=== PATIENT | male | born 1990 | race Caucasian/White ===

== ENCOUNTER 2024-12-09 18:15 | Emergency (ER) | payer SELFPAY ==
--- NOTE | ~2024-12-09 | CT_ITS ---
CLINICAL HISTORY: seizure , headache. CT head without contrast Comparison: None Findings: No intra-axial mass, midline shift, hydrocephalus, or acute hemorrhage. No significant atrophy-like change or white matter disease. There is no sinus or mastoid fluid. The orbits are unremarkable. There is no acute fracture. IMPRESSION: 1. No acute intracranial findings. This document has been electronically signed by: Zhang Cerna MD on 12/09/2024 19:38:14
--- NOTE | 2024-12-09 18:18 | ED_ITS ---
HPI - General Adult General Chief complaint: Seizure Stated complaint: seizure last night/blood nose today Time Seen by Provider: 12/09/24 18:37 Source: patient Mode of arrival: ambulatory Limitations: no limitations History of Present Illness ED Provider: DR. Wiggins HPI narrative: 34-year-old male with known history of epilepsy normally on Keppra for seizure patient ran out of Keppra medication for the past 2 weeks due to health insurance issue, patient is complaining of headache since yesterday, woke up this morning with generalized body ache and patel indicating biting his tongue, Patient also has been smelling silver all day yesterday which is specific aura for patient's seizure. Complaining of head and neck pain. No fever, no chills. Related Data Previous Rx's ?Medication ?Instructions ?Recorded levetiracetam 500 mg tablet 500 mg PO BID #90 tabs 12/09/24 (Keppra) Allergies Allergy/AdvReac Type Severity Reaction Status Date / Time amoxicillin Allergy Vomiting Verified 12/09/24 18:22 latex Allergy Swelling Verified 12/09/24 18:22 Penicillins Allergy Vomiting Verified 12/09/24 18:22 Review of Systems 2 Review of Systems: All other systems are reviewed and are negative Constitutional: Reports as per HPI and Reports no additional constitutional complaints Eyes: Reports as per HPI and Reports no additional eye complaints Reports system reviewed and no additional complaints, except as documented Cardiovascular: Reports as per HPI and Reports no additional cardiovascular complaints Respiratory: Reports as per HPI and Reports no additional respiratory complaints Gastrointestinal: Reports as per HPI and Reports no additional gastrointestinal complaints Genitourinary: Reports no additional female genitourinary complaints Musculoskeletal: Reports no additional musculoskeletal complaints Skin/Breast: Reports system reviewed and no additional complaints, except as docu Psychiatric: Reports no additional psychiatric complaints Endocrine: Reports no additional endocrine complaints Hematologic/Lymphatic: Reports no additional hematologic/lymphatic complaints Allergic/Immunologic: Reports no additional allergic/immunologic complaints Reports system reviewed and no additional complaints, except as documented and Reports Abnormal speech present [facility] Social History Social History Advance Directives: No Advance Directives Information Provided: No Physical Exam ED Vital Signs: Vital Signs - 24 hr 12/09/24 18:19 Temperature 98.3 F Pulse Rate 82 Respiratory Rate 18 Blood Pressure 135/94 H Pulse Oximetry 99 Oxygen Delivery Method Room Air BMI result Body Mass Index 21.4 Vital signs have been reviewed and appear to be correct. Blood pressure elevated. Heart rate normal. Respiratory rate normal. Temperature normal. Oxygen saturation normal. Appearance: Alert. Oriented X3. No acute distress. Head: Normal external exam. Normocephalic. Atraumatic. No Macias signs noted. No raccoon eyes noted Eyes: PERRLA. EOMI. Conjunctiva and sclera normal. Eyelids normal. ENT: TM's Normal. Pharynx normal. Uvula midline. Moist mucous membranes. No trismus noted. No drooling noted. No muffled voice noted. Neck: Normal inspection. Neck supple. FROM. No adenopathy. Thyroid Normal. No meningeal signs. No neck mass noted. CVS: Normal heart rate and rhythm. Heart sound normal. No murmurs noted. Pulses normal throughout. Respiratory: No respiratory distress. Painless inspiration. Breath sounds normal. No wheezes/rales/rhonchi noted. Chest nontender. No accessory muscle usage noted or decreased air movement noted. Abdomen: Soft and nontender. Bowel sounds normal in all 4 quadrants. No distention noted. No organomegaly noted. No visible injury noted. Back: No CVA tenderness. Full range of motion noted. Skin: Skin warm and dry. Normal skin color. Normal skin turgor. No rashes/lesions/lacerations noted. Extremities: No lower extremity edema. Extremities exhibit normal range of motion. Extremities nontender. Neuro: Mental status: Normal attention, orientation, memory, and affect. Cranial nerves: Pupils are equal, round and reactive to light, EOMI, visual garcia are fall, face is symmetric, facial sensations are normal. Motor examination normal muscle tone, strength to 4 extremities. DTR are +2, planter's are flexor. Sensory exam; normal coordination, no ataxia, gait stable. Cerebellar exam: [id number] and [id number]-[id number] is normal. Extrapyramidal system: No tremors, no rigidity with normal facial expressions. Pronator drift not present Course Course Course Narrative: This is a rapid medical exam performed by Myles Galeano NP: Additional HPI, ROS, PE not included below will be deferred to primary provider. Patient is a 34-year-old male with history of epilepsy presenting with complaint of severe headache yesterday, presumed seizure. Does not remember having a seizure but woke this morning with bite patel on his tongue, ongoing headache. Today while at work had a nosebleed. Has been out of his Keppra for around 2 weeks, takes 500mg BID. States he is waiting for his insurance from work to kick in in December. Plan: labs Reevaluation(s) Reevaluation #1: Seizure, not compliant with Keppra due to insurance issue, will prescribe a month supply of Keppra until patient get back his health insurance. Time: 20:30 Medications Administered Discontinued Medications Generic Name Dose Route Start Last Admin Trade Name Freq PRN Reason Stop Dose Admin Acetaminophen 975 mg 12/09/24 18:52 12/09/24 19:08 Acetaminophen 325 Mg Tablet PO 12/09/24 18:53 975 mg ONCE ONE Administration Levetiracetam 1,000 mg 12/09/24 18:46 12/09/24 18:50 Levetiracetam 1,000 Mg Tablet PO 12/09/24 18:47 1,000 mg ONCE ONE Administration Medical Decision Making Differential Diagnosis Differential Diagnoses: The differential diagnosis associated with the presentation includes ( intracranial pathology, subtherapeutic Keppra, electrolyte derangement, severe anemia) Admission/Observation Consideration of admission/observation: Escalation of care including admission/observation considered Lab Data MDM Lab Attestation statement: I reviewed the patient's lab results. 12/09/24 18:31 12/09/24 18:31 Labs: Lab Results 12/09/24 Range/Units 18:31 WBC 8.5 (4.8-10.8) X10*3/uL RBC 4.92 (4.60-5.80) X10*6/uL Hgb 14.7 (14.0-18.0) g/dl Hct 43.3 (42.0-52.0) % MCV 88.0 (80.0-98.0) fL MCH 29.9 (27.0-33.0) pg MCHC 33.9 (31.0-36.0) g/dl RDW 13.2 (11.0-16.0) % Plt Count 282 (160-400) X10*3/uL MPV 9.3 L (9.4-12.4) fL Immature Gran % (Auto) 0.2 (0.0-0.4) % Neut % (Auto) 60.8 (45-73) % Lymph % (Auto) 28.0 (20-40) % [place] % (Auto) 9.1 (2-11) % Eos % (Auto) 0.7 (0-4) % Baso % (Auto) 1.2 (0-2) % Lymph # (Auto) 2.4 (1.2-4.9) X10*3/uL [place] # (Auto) 0.8 (0.1-1.2) X10*3/uL Eos # (Auto) 0.1 (0.0-0.4) X10*3/uL Baso # (Auto) 0.1 (0.0-0.2) X10*3/uL Abs Immat Gran (auto) 0.02 (0.00-0.03) X10*3/uL Absolute Neuts (auto) 5.2 (2.0-8.3) x10*3/uL Absolute Nucleated RBC 0.000 (0.0-0.012) X10*3/uL Nucleated RBC % (auto) 0.0 (0.0-0.2) /100WBC Sodium 139 (135-145) mmol/L Potassium 3.8 (3.3-5.1) mmol/L Chloride 105 (96-108) mmol/L Carbon Dioxide 26 (22-29) mmol/L Anion Gap 12 (12-20) BUN 9 (9-16) mg/dL Creatinine 0.82 (0.5-1.4) mg/dL Estim Creat Clear Calc 106.8 Estimated GFR > 60 Random Glucose 110 (60-115) mg/dL Lactic Acid 1.3 (0.5-2.0) mmol/L Calcium 9.5 (8.4-10.2) mg/dL Magnesium 2.2 (1.6-2.6) mg/dL Total Bilirubin 0.3 (0.0-1.0) mg/dL AST 24 (5-37) U/L ALT 18 (0-40) U/L Alkaline Phosphatase 82 (39-117) U/L Total Protein 7.8 (6.5-8.0) g/dL Albumin 4.8 (3.5-5.0) g/dL Independent Interpretation I performed an independent interpretation of an: CT Scan ( head CT: No acute intracranial pathology.) Radiology Impression Discussion of test interpretation with radiology: I have reviewed the radiologist's reading. Discharge Plan Discharge Clinical Impression: Epileptic seizure Patient Disposition: Home, Self-Care Instructions: Epilepsy (ED) Prescriptions: New levetiracetam [Keppra] 500 mg tablet 500 mg PO BID Qty: 90 0RF Print Language: Macedonian
[2024-12-09 18:19] VITALS: BP 135/94; PULSE 82; RESP 18; TEMP 36.8; O2SAT 99; BMI 21.4
[2024-12-09 18:37] LABS: MANUAL DIFF FLAG NO
[2024-12-09 18:38] LABS: Basophils Absolute Auto 0.1 X10*3/uL (0.0-0.2); Basophils Percent Auto 1.2 % (0-2); Eosinophils Absolute Auto 0.1 X10*3/uL (0.0-0.4); Eosinophils Percent Auto 0.7 % (0-4); Hematocrit 43.3 % (42.0-52.0); Hemoglobin 14.7 g/dl (14.0-18.0); Imm Gran Abs Auto 0.02 X10*3/uL (0.00-0.03); Imm Gran Pct Auto 0.2 % (0.0-0.4); Lymphocytes Absolute Auto 2.4 X10*3/uL (1.2-4.9); Mean Corpuscular HGB Conc 33.9 g/dl (31.0-36.0); Mean Corpuscular Hemoglobin 29.9 pg (27.0-33.0); Mean Platelet Volume 9.3 fL (9.4-12.4); Monocytes Absolute Auto 0.8 X10*3/uL (0.1-1.2); Monocytes Percent Auto 9.1 % (2-11); Neutrophils Absolute Auto 5.2 x10*3/uL (2.0-8.3); Neutrophils Percent Auto 60.8 % (45-73); Platelet Count 282 X10*3/uL (160-400); Red Blood Count 4.92 X10*6/uL (4.60-5.80); Red Cell Distribution Width 13.2 % (11.0-16.0); White Blood Count 8.5 X10*3/uL (4.8-10.8)
[2024-12-09] MEDS: levETIRAcetam 1,000 MG TABLET 1000 MG PO (18:50)
[2024-12-09 18:54] LABS: Lactic Acid 1.3 mmol/L (0.5-2.0)
[2024-12-09] MEDS: Acetaminophen 325 MG TABLET 975 MG PO (19:08)
[2024-12-09 19:13] LABS: Alanine Aminotransferase 18 U/L (0-40); Albumin Level 4.8 g/dL (3.5-5.0); Alkaline Phosphatase 82 U/L (39-117); Anion Gap 12 (12-20); Aspartate Amino Transferase 24 U/L (5-37); Bilirubin Total 0.3 mg/dL (0.0-1.0); Blood Urea Nitrogen 9 mg/dL (9-16); Calcium 9.5 mg/dL (8.4-10.2); Carbon Dioxide 26 mmol/L (22-29); Chloride 105 mmol/L (96-108); Creatinine Clr Calc Pharmacy 106.8; Estimated Glomerular Filt Rate > 60; Glucose Random 110 mg/dL (60-115); Magnesium 2.2 mg/dL (1.6-2.6); Potassium 3.8 mmol/L (3.3-5.1); Sodium 139 mmol/L (135-145); Total Protein 7.8 g/dL (6.5-8.0)
[2024-12-09 19:55] VITALS: BP 137/77; PULSE 65; RESP 16; TEMP 36.8; O2SAT 97
[2024-12-09 19:58] VITALS: BP 137/77; PULSE 65; RESP 16; TEMP 36.8; O2SAT 97
== END 2024-12-09 19:40 | disposition home or self-care (01) ==
PROVIDERS: Registered Nurse Emergency; Emergency Provider Emergency Medicine
DX: G40.909 Epilepsy, unspecified, not intractable, without status epilepticus (principal); R51.9 Headache, unspecified
CPT/HCPCS: 36415; 70450; 80053; 83605; 83735; 85025; 99283; 99284

== ENCOUNTER → 2024-12-09 18:47 | Outpatient (BNV) | payer SELFPAY | PROVIDERS: Emergency Provider Emergency Medicine; Visit Provider Radiology Diagnostic Radiology | DX: R56.9 Unspecified convulsions (principal); R51.9 Headache, unspecified | CPT/HCPCS: 70450 ==

== ENCOUNTER 2024-12-14 20:19 | Emergency (ER) | payer SELFPAY ==
--- NOTE | ~2024-12-14 | XR_ITS ---
CLINICAL HISTORY: seizure 1 view chest x-ray Comparison: None Findings: No consolidation, pneumothorax, or pleural effusion. Cardiac silhouette and mediastinal contours are within normal limits for AP technique. No acute osseous abnormality in the [id number]. IMPRESSION: No consolidation. This document has been electronically signed by: Godfrey Ta MD on 12/14/2024 22:04:12
--- NOTE | ~2024-12-14 | CT_ITS ---
CLINICAL HISTORY: seizure w HS CT head without contrast Comparison: Head CT from 12/09/2024 Findings: No acute intracranial hemorrhage. No midline shift or hydrocephalus. No large arterial territorial infarction by CT, accounting for artifacts. Posterior fossa arachnoid cyst measures 4 mm. Mild increase in superficial soft tissue swelling and scalp prominence, including over the right frontal convexity. No acute skull fracture. Imaged paranasal sinuses and imaged mastoid air cells are well aerated. Bilateral nasal bone deformities appear old/chronic. Imaged nasal septum deviates to the right. Lucencies of the partially imaged including upper alveolar ridge imaged maxilla including about imaged maxillary teeth. IMPRESSION: No acute intracranial abnormality by CT This document has been electronically signed by: Godfrey Ta MD on 12/14/2024 22:37:47
[2024-12-14 20:44] VITALS: BP 140/85; PULSE 64; RESP 16; TEMP 36.6; O2SAT 100; BMI 22.5
--- NOTE | 2024-12-14 20:46 | ED.SEIZURE ---
HPI - Seizure General Chief Complaint: Seizure Stated Complaint: Seizure/hit head, hematoma on forehead Time Seen by Provider: 12/15/24 00:49 Source: patient Limitations: no limitations History of Present Illness ED Provider: Cecile Eng PA-C HPI Narrative: 34 y/o M with hx of seizures on Keppra presents to the ED with unwitnessed seizure at home. Patient states he has been in bed, he woke up on the floor with a contusion over the right forehead. Patient felt confused and lethargic. He denies injury to the tongue or urinary incontinence. Patient states he has been adherent with taking his Keppra. He has yet to follow up with Neurology, he states he ?lost his paperwork?. Patient admits to smoking marijuana and drinking alcohol today. Related Data Previous Rx's ?Medication ?Instructions ?Recorded levetiracetam 500 mg tablet 500 mg PO BID #90 tabs 12/09/24 (Keppra) Allergies Allergy/AdvReac Type Severity Reaction Status Date / Time amoxicillin Allergy Vomiting Verified 12/14/24 20:48 latex Allergy Swelling Verified 12/14/24 20:48 Penicillins Allergy Vomiting Verified 12/14/24 20:48 Review of Systems Review of Systems: Yes all other systems are reviewed and are negative Constitutional: Constitutional: Denies fatigue, Denies fever(s) and Denies headache(s) ENT: Denies dizziness and Denies headache(s) Cardiovascular: Cardiovascular: Denies chest pain Gastrointestinal: Gastrointestinal: Denies abdominal pain, Denies nausea and Denies vomiting Neurologic: Denies dizziness and Denies headache(s) Endocrine: Endocrine: Denies fatigue [facility] Past Medical History Attestation statement: The following information was validated with the patient. Social History Social History Smoked in Last 30 Days: Yes Use of substances other than those prescribed or required for medical reasons: Yes Substance Use Type: Marijuana Advance Directives: No Advance Directives Information Provided: No Do you have a plan to hurt others: No Plan Physical Exam Vital Signs: Vital Signs: Last Vital Signs Temp 98.1 F 12/15/24 01:49 Pulse 72 12/15/24 01:49 Resp 14 12/15/24 01:49 BP 121/80 12/15/24 01:49 Pulse Ox 99 12/15/24 01:49 O2 Del Method Room Air 12/15/24 01:49 BMI result Body Mass Index 22.5 Const: Other: Contusion right forehead Orientation/consciousness: patient oriented x3 Eyes: Other: PERRLA Resp: Effort & Inspection: normal respiratory effort Cardio: Other: Normal peripheral perfusion Skin: Other: Warm dry no rash Neuro: General: patient oriented x3, gait normal, no focal motor deficits and CN's II-XI intact bilaterally Psych: Other: Cooperative Course Course Course Narrative: This is a Rapid Medical Exam performed in triage by Kim Mendoza PA-C. Full HPI, ROS and PE to be performed by primary ED provider. 34 yo M w/PMHx seizures on Keppra presenting to the ED c/o unwitnessed seizure at home in bedroom this afternoon, woke up on bedroom floor. +confusion/lethargy. denies incontinence or tongue biting. Denies N/V. Reports compliance with Keppra PE: +Large hematoma noted to forehead, +post ictal/foggy, lethargic Plan: EKG, labs, UA, Head CT, SARs Medical Decision Making Medical Decision Making MDM Narrative: 34 y/o M with hx of seizures on Keppra presents to the ED with unwitnessed seizure at home. Patient states he has been in bed, he woke up on the floor with a contusion over the right forehead. Patient felt confused and lethargic. He denies injury to the tongue or urinary incontinence. Patient states he has been adherent with taking his Keppra. He has yet to follow up with Neurology, he states he ?lost his paperwork?. Patient admits to smoking marijuana and drinking alcohol today. Problem: Seizure disorder History: Per patient I have considered the following differential diagnoses: Medication nonadherence, breakthrough seizure, seizure precipitated by illicit substances and alcohol, intracranial hemorrhage Plan: Screening labs and a CT of the brain were obtained from triage, everything is negative. The patient's seizure threshold may have been lowered by his use of marijuana and alcohol. U tox and ethanol were not ordered from triage, it has been several hours since the patient was initially assessed, there is no value now. I did relay this information to the patient. He has yet to follow up with Neurology, he was given a contact, he lost the paperwork. We will provided to him again in his discharge paperwork. I have independently reviewed the following tests: Labs: No leukocytosis, not anemic, no electrolyte abnormality, urine not infected viral panel negative CT brain:MPRESSION: No acute intracranial abnormality by CT Chest x-ray:indings: No consolidation, pneumothorax, or pleural effusion. Cardiac silhouette and mediastinal contours are within normal limits for AP technique. No acute osseous abnormality in the [id number]. IMPRESSION: No consolidation. This document has been arsen Lab Data 12/14/24 21:25 12/14/24 21:25 Labs: Lab Results 12/14/24 12/14/24 Range/Units 21:25 21:29 WBC 9.3 (4.8-10.8) X10*3/uL RBC 4.57 L (4.60-5.80) X10*6/uL Hgb 13.8 L (14.0-18.0) g/dl Hct 40.2 L (42.0-52.0) % MCV 88.0 (80.0-98.0) fL MCH 30.2 (27.0-33.0) pg MCHC 34.3 (31.0-36.0) g/dl RDW 13.3 (11.0-16.0) % Plt Count 275 (160-400) X10*3/uL MPV 9.4 (9.4-12.4) fL Immature Gran % (Auto) 0.2 (0.0-0.4) % Neut % (Auto) 58.1 (45-73) % Lymph % (Auto) 30.6 (20-40) % [place] % (Auto) 8.6 (2-11) % Eos % (Auto) 1.3 (0-4) % Baso % (Auto) 1.2 (0-2) % Lymph # (Auto) 2.9 (1.2-4.9) X10*3/uL [place] # (Auto) 0.8 (0.1-1.2) X10*3/uL Eos # (Auto) 0.1 (0.0-0.4) X10*3/uL Baso # (Auto) 0.1 (0.0-0.2) X10*3/uL Abs Immat Gran (auto) 0.02 (0.00-0.03) X10*3/uL Absolute Neuts (auto) 5.4 (2.0-8.3) x10*3/uL Absolute Nucleated RBC 0.000 (0.0-0.012) X10*3/uL Nucleated RBC % (auto) 0.0 (0.0-0.2) /100WBC Sodium 140 (135-145) mmol/L Potassium 3.9 (3.3-5.1) mmol/L Chloride 106 (96-108) mmol/L Carbon Dioxide 27 (22-29) mmol/L Anion Gap 11 L (12-20) BUN 11 (9-16) mg/dL Creatinine 0.84 (0.5-1.4) mg/dL Estim Creat Clear Calc 109.3 Estimated GFR > 60 Random Glucose 91 (60-115) mg/dL Calcium 9.5 (8.4-10.2) mg/dL Magnesium 2.3 (1.6-2.6) mg/dL Total Bilirubin 0.3 (0.0-1.0) mg/dL Direct Bilirubin 0.1 (0.0-0.5) mg/dL AST 18 (5-37) U/L ALT 15 (0-40) U/L Alkaline Phosphatase 72 (39-117) U/L Troponin I High Sens < 2.7 (<3.5-35.0) ng/L Total Protein 7.1 (6.5-8.0) g/dL Albumin 4.5 (3.5-5.0) g/dL Urine Color Yellow Urine Appearance Clear Urine pH 6.0 (5.0-9.0) Ur Specific [place] 1.020 (1.005-1.025) Urine Protein Negative (Neg-Trace) mg/dL Urine Glucose (UA) Negative (Negative) mg/dL Urine Ketones Negative (Negative) mg/dL Urine Blood Negative (Negative) Urine Nitrite Negative (Negative) Ur Leukocyte Esterase Negative (Negative) Influenza Type A (PCR) NEGATIVE (Negative) Influenza Type B (PCR) NEGATIVE (Negative) RSV RNA Qual (PCR) NEGATIVE (Negative) SARS-CoV-2 RNA (RT-PCR) NEGATIVE (Negative) Discharge Plan Discharge Clinical Impression: Epileptic seizure Patient Disposition: Home, Self-Care Instructions: Epilepsy (ED) Additional Instructions: You are being treated for breakthrough seizure. You had no lab abnormalities, the CT scan of your brain was normal. To note, using illicit substances and alcohol can lower your body's threshold to have a breakthrough seizure. Be sure to take your Keppra as directed. I am again providing you with a contact for our Neurology service, you need to follow up with them, call tomorrow to make an appointment. Prescriptions: No Action levetiracetam [Keppra] 500 mg tablet 500 mg PO BID Qty: 90 0RF Referrals: Galen Govea MD [Physician] - (seizures, needs a neurologist) Stand Alone Forms: Work/School Release Print Language: Slovenian
--- NOTE | 2024-12-14 20:47 | ECG_ITS ---
Test Reason : SEIZURE Blood Pressure : */* mmHG Vent. Rate : 67 BPM Atrial Rate : 67 BPM P-R Int : 114 ms QRS Dur : 84 ms QT Int : 382 ms P-R-T Axes : * 61 49 degrees QTcB Int : 403 ms Normal sinus rhythm Normal ECG No previous ECGs available Referred By: Kim Mendoza Electronically Signed By: NATALEE AARON MD
[2024-12-14 21:27] VITALS: BP 133/81; PULSE 66; RESP 13; TEMP 36.6; O2SAT 97
[2024-12-14 21:34] LABS: MANUAL DIFF FLAG NO
[2024-12-14 21:37] LABS: Appearance Urine Clear; Color Urine Yellow; Glucose Urine UA Negative (Negative); Leukocyte Esterase Urine Negative (Negative); Nitrite Urine Negative (Negative); Urine Blood Negative (Negative); Urine Ketones Negative (Negative); Urine Protein Negative (Neg-Trace)
[2024-12-14 21:38] LABS: Basophils Absolute Auto 0.1 X10*3/uL (0.0-0.2); Basophils Percent Auto 1.2 % (0-2); Eosinophils Absolute Auto 0.1 X10*3/uL (0.0-0.4); Eosinophils Percent Auto 1.3 % (0-4); Hematocrit 40.2 % (42.0-52.0); Hemoglobin 13.8 g/dl (14.0-18.0); Imm Gran Abs Auto 0.02 X10*3/uL (0.00-0.03); Imm Gran Pct Auto 0.2 % (0.0-0.4); Lymphocytes Absolute Auto 2.9 X10*3/uL (1.2-4.9); Lymphocytes Percent Auto 30.6 % (20-40); Mean Corpuscular HGB Conc 34.3 g/dl (31.0-36.0); Mean Corpuscular Hemoglobin 30.2 pg (27.0-33.0); Mean Platelet Volume 9.4 fL (9.4-12.4); Monocytes Absolute Auto 0.8 X10*3/uL (0.1-1.2); Monocytes Percent Auto 8.6 % (2-11); Neutrophils Absolute Auto 5.4 x10*3/uL (2.0-8.3); Neutrophils Percent Auto 58.1 % (45-73); Platelet Count 275 X10*3/uL (160-400); Red Blood Count 4.57 X10*6/uL (4.60-5.80); Red Cell Distribution Width 13.3 % (11.0-16.0); White Blood Count 9.3 X10*3/uL (4.8-10.8)
[2024-12-14 21:49] LABS: Alanine Aminotransferase 15 U/L (0-40); Albumin Level 4.5 g/dL (3.5-5.0); Alkaline Phosphatase 72 U/L (39-117); Anion Gap 11 (12-20); Aspartate Amino Transferase 18 U/L (5-37); Bilirubin Direct 0.1 mg/dL (0.0-0.5); Bilirubin Total 0.3 mg/dL (0.0-1.0); Blood Urea Nitrogen 11 mg/dL (9-16); Calcium 9.5 mg/dL (8.4-10.2); Carbon Dioxide 27 mmol/L (22-29); Chloride 106 mmol/L (96-108); Creatinine Clr Calc Pharmacy 109.3; Estimated Glomerular Filt Rate > 60; Glucose Random 91 mg/dL (60-115); Magnesium 2.3 mg/dL (1.6-2.6); Potassium 3.9 mmol/L (3.3-5.1); Sodium 140 mmol/L (135-145); Total Protein 7.1 g/dL (6.5-8.0)
[2024-12-14 21:57] LABS: Troponin-I High Sensitivity < 2.7 ng/L (<3.5-35.0)
[2024-12-14 22:13] LABS: Influenza A PCR NEGATIVE (Negative); Influenza B PCR NEGATIVE (Negative); Resp Syncy Virus RNA Qual PCR NEGATIVE (Negative); SARS COV2 PCR INHOUSE NEGATIVE (Negative)
[2024-12-14 22:53] VITALS: BP 110/68; PULSE 56; RESP 13; O2SAT 98
--- NOTE | 2024-12-15 01:48 | PC.NURSE ---
patient ambulatory to bathroom steady gait no reports of dizziness
[2024-12-15 01:49] VITALS: BP 121/80; PULSE 72; RESP 14; TEMP 36.7; O2SAT 99
[2024-12-15] MEDS: levETIRAcetam 500 MG TABLET PO (02:48)
[2024-12-15 02:50] VITALS: BP 121/80; PULSE 72; RESP 14; TEMP 36.7; O2SAT 99
[2024-12-17 22:17] LABS: Levetiracetam Keppra 3.2 mcg/mL (6.0-46.0)
== END 2024-12-15 03:00 | disposition home or self-care (01) ==
PROVIDERS: Physician Assistant; Emergency Provider Emergency Medicine Emergency Medical Services
DX: R56.9 Unspecified convulsions (principal); Z03.818 Encounter for observation for suspected exposure to other biological agents ruled out; Z79.899 Other long term (current) drug therapy
CPT/HCPCS: 0241U; 70450; 71045; 80048; 80076; 80177; 81003; 83735; 84484; 85025; 93005; 99284

== ENCOUNTER → 2024-12-14 20:47 | Outpatient (BNV) | payer SELFPAY | PROVIDERS: Visit Provider Radiology Neuroradiology | DX: G40.909 Epilepsy, unspecified, not intractable, without status epilepticus (principal) | CPT/HCPCS: 70450; 71045 ==

== ENCOUNTER → 2024-12-14 20:47 | Outpatient (BNV) | payer SELFPAY | PROVIDERS: Emergency Provider Emergency Medicine Emergency Medical Services; Visit Provider Internal Medicine Cardiovascular Disease | DX: R56.9 Unspecified convulsions (principal) | CPT/HCPCS: 93010 ==